=== PATIENT | female | born 1995 | race Hispanic/Latino ===

== ENCOUNTER 2017-08-05 21:26 | Emergency (ER) | payer OTHER ==
[2017-08-05 21:45] VITALS: BP 121/48; PULSE 62; RESP 16; TEMP 98.1; O2SAT 100
--- NOTE | 2017-08-05 22:03 | ED PDOC ---
HPI: Female Pain Time Seen by Provider: 08/05/17 21:40 Chief Complaint (Nursing): Female Genitourinary Chief Complaint (Provider): vaginal bleeding History Per: Patient History/Exam Limitations: no limitations Onset/Duration Of Symptoms: Days (2 weeks), Waxing/Waning Current Symptoms Are (Timing): Still Present Additional History Per: Patient Additional Complaint(s): 22 y/o female presents for evaluation of vaginal bleeding x 2 weeks. Patient states she got her regular menses approximately 2 weeks ago, usually lasts a few days, however lasted 2 weeks. Patient states bleeding stopped for a day or two then started up again yesterday, with + clots. Patient notes feeling weak and dizzy today. Patient also reports constipation, states she has a longstanding history of it but has had one bowel movement in 10 days, which is less than usual for her. Denies fever, nausea/vomiting, chest pain, shortness of breath, palpitations, abdominal pain, urinary symptoms. Patient states she took one dose of Valtrex today for mouth cold sore Past Medical History Reviewed: Historical Data, Nursing Documentation, Vital Signs Vital Signs: Last Vital Signs Temp 98.1 F 08/05/17 21:40 Pulse 62 08/05/17 21:40 Resp 16 08/05/17 21:40 BP 121/48 L 08/05/17 21:40 Pulse Ox 100 08/05/17 21:40 - Medical History PMH: No Chronic Diseases - Surgical History Surgical History: No Surg Hx - Family History Family History: States: No Known Family Hx - Allergies Allergies/Adverse Reactions: Allergies Allergy/AdvReac Type Severity Reaction Status Date / Time No Known Allergies Allergy Verified 08/05/17 21:40 Review of Systems ROS Statement: Except As Marked, All Systems Reviewed And Found Negative Constitutional: Positive for: Weakness Gastrointestinal: Positive for: Constipation Genitourinary Female: Positive for: Vaginal Bleeding Physical Exam - Reviewed Nursing Documentation Reviewed: Yes Vital Signs Reviewed: Yes - Physical Exam Appears: Positive for: Well, Non-toxic, No Acute Distress Head Exam: Positive for: ATRAUMATIC, NORMAL INSPECTION, NORMOCEPHALIC Skin: Positive for: Normal Color, Rash (papular/vesicular cluster right brenna- oral region) Eye Exam: Positive for: Normal appearance ENT: Positive for: Normal ENT Inspection Cardiovascular/Chest: Positive for: Regular Rate, Rhythm Respiratory: Positive for: Normal Breath Sounds Gastrointestinal/Abdominal: Positive for: Normal Exam Pelvic Exam: Positive for: External Exam Normal, No Cerv. 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) Back: Positive for: Normal Inspection Extremity: Positive for: Normal ROM Neurologic/Psych: Positive for: Alert, Oriented - Laboratory Results Result Diagrams: 08/05/17 22:48 08/05/17 22:48 - ECG O2 Sat by Pulse Oximetry: 100 - Other Rad obstructive series X-Ray: Viewed By Me X-Ray Interpretation: moderate stool retention throughout - Progress ED Course And Treament: labs, urine, TV u/s, obstructive series, IV fluids EXAM: US Pelvis, Transvaginal CLINICAL HISTORY: 22 years old, female; Signs and symptoms; Menstruation abnormalities; Irregular menstruation; Additional info: Irregular vaginal bleeding TECHNIQUE: Real-time transvaginal pelvic ultrasound (complete) with image documentation. Transvaginal imaging was used for better evaluation of the endometrium and adnexa. COMPARISON: No relevant prior studies available. FINDINGS: Uterus/cervix: Unremarkable in echogenicity and size measuring 6.3 x 2.8 x 3.3 cm. Normal endometrial stripe thickness measuring 4 mm. No myometrial mass. Right ovary: Unremarkable in echogenicity and size measuring 2.7 x 2.0 x 3.0 cm. No mass. Normal blood flow. Left ovary: Unremarkable in size measuring 3.4 x 1.2 x 2.7 cm. No mass. Normal blood flow. Adjacent to the left ovary is a anechoic rounded focus measuring 13 mm in greatest dimension, likely a paraovarian cyst. Free fluid: Trace free fluid within the posterior cul-de-sac. IMPRESSION: 13 mm left paraovarian cyst. Patient given Fleet enema and magnesium citrate for constipation. States she see's a turkey roll maker for diet modification for her chronic constipation. Patient educated on findings, discharged with instructions on Route Relief Driver follow up. At patient's request, contact information given for Dr. Vogt Return precautions given. Disposition - Clinical Impression Clinical Impression: Ovarian cyst, Constipation, Abnormal menstruation - Patient ED Disposition Is Patient to be Admitted: No Counseled Patient/Family Regarding: Studies Performed, Diagnosis, Need For Followup - Disposition Referrals: Shanna Vogt MD [Staff Provider] - Disposition: Routine/Home Disposition Time: 00:00 Condition: IMPROVED Instructions: Ovarian Cyst (ED), Constipation (ED), Menorrhagia (ED) Forms: [employer] app [employer] ([employer])
[2017-08-05 22:54] LABS: BASO # 0.1 K/uL (0.0-0.2); EOS # 0.5 K/uL (0.0-0.7); EOS % 8.4 % (0.0-4.0); LYMPH # 2.2 K/uL (1.0-4.3); LYMPH % 38.7 % (20.0-40.0); MEAN CELL VOLUME 88.9 fl (81.0-99.0); MEAN CORPUSCULAR HEMOGLOBIN 29.2 pg (27.0-31.0); MEAN CORPUSCULAR HGB CONC 32.8 g/dL (33.0-37.0); MEAN PLATELET VOLUME 7.7 fl (7.2-11.7); MONO # 0.4 K/uL (0.0-0.8); MONO % 6.4 % (0.0-10.0); NEUT # 2.6 K/uL (1.8-7.0); NEUT % 45.5 % (50.0-75.0); RBC 4.44 Mil/uL (3.80-5.20); RED CELL DISTRIBUTION WIDTH 13.1 % (11.5-14.5); WHITE BLOOD COUNT 5.6 K/uL (4.8-10.8)
[2017-08-05 22:55] LABS: SQUAMOUS EPITHIAL < 1 /hpf (0-5); URINE BILIRUBIN NEGATIVE (NEGATIVE); URINE BLOOD NEGATIVE (NEGATIVE); URINE CLARITY CLEAR (Clear); URINE COLOR COLORLESS (YELLOW); URINE GLUCOSE (UA) NEG (Normal); URINE LEUKOCYTE ESTERASE NEG Leu/uL (Negative); URINE NITRATE NEGATIVE (NEGATIVE); URINE PROTEIN NEGATIVE (NEGATIVE); URINE UROBILINOGEN 0.2-1.0 mg/dL (0.2-1.0)
[2017-08-05 23:07] LABS: ALB/GLOB RATIO 1.5 (1.0-2.1); ALBUMIN 4.2 g/dL (3.5-5.0); ALT/SGPT 44 U/L (9-52); AST/SGOT 31 U/L (14-36); BLOOD UREA NITROGEN 15 mg/dl (7-17); CALCIUM 9.5 mg/dL (8.4-10.2); GFR AFRICAN-AMERICAN > 60; GFR NON-AFRICAN AMERICAN > 60
[2017-08-05] MEDS: Sodium Chloride 0.9% 1,000 ML IV STA (23:27)
[2017-08-05] MEDS ORDERED: Magnesium Citrate Oral SOL (300 ml) ONE (23:28)
[2017-08-05] MEDS: Magnesium Citrate Oral SOL (300 ml) PO ONE (23:43)
[2017-08-06] MEDS ORDERED: Magnesium Citrate Oral SOL (300 ml) ONE (00:08)
--- NOTE | 2017-08-06 08:56 | US ---
HISTORY: irregular vaginal bleeding COMPARISON: None available. TECHNIQUE: Grayscale, color Doppler and spectral evaluation of the pelvis performed transvaginally. FINDINGS: UTERUS: Measures 6.3 x 2.8 x 3.3 cm. Anteverted. Normal in size and appearance. No fibroid or other mass lesion seen. ENDOMETRIUM: Measures 4 mm in diameter. Unremarkable. CERVIX: No cervical abnormality identified. RIGHT OVARY: Measures 2.7 x 2.0 x 3.0 cm. No solid mass. Normal flow. LEFT OVARY: Measures 3.4 x 1.2 x 2.7 cm. Small paraovarian cyst measuring 1.3 x 0.9 x 1.1 centimeter. No solid mass. Normal flow. FREE FLUID: No significant free fluid noted. OTHER FINDINGS: None. IMPRESSION: Unremarkable pelvic ultrasound.
--- NOTE | 2017-08-06 09:20 | RAD ---
PROCEDURE: Radiographs of the chest and abdomen (obstructive series) HISTORY: constipation COMPARISON: No prior. TECHNIQUE: AP radiograph of the chest, with upright and supine radiographs of the abdomen. FINDINGS: CHEST: Lungs: Clear. Cardiovascular: Normal size heart. No pulmonary vascular congestion. Pleura: No pleural fluid. No pneumothorax. Other findings: None. ABDOMEN AND PELVIS: Bowel: Prominent amount of retained colonic stool. Unremarkable bowel gas pattern. No evidence of mechanical obstruction. Free air: None. Bones: Unremarkable. Other findings: None. IMPRESSION: Prominent amount of retained colonic stool.
== END 2017-08-06 00:10 | disposition home or self-care (01) ==
LOC: H.ER 21:26
DX: N83.209 Unspecified ovarian cyst, unspecified side (principal); K59.09 Other constipation; N92.6 Irregular menstruation, unspecified